=== PATIENT | female | born 1960 | race Caucasian/White ===

== ENCOUNTER → 2018-01-11 | Outpatient (CLI) | payer BC ==
--- NOTE | 2018-01-11 11:11 | Diagnostic Imaging Report ---
INDICATION: Postmenopausal female. Bone density screening. TECHNIQUE: DEXA scan performed of the lumbar spine and bilateral hips. COMPARISON: None FINDINGS: Lumbar Spine: The bone mineral density of the lumbar spine measured from vertebral bodies L1-L4 measures 0.992 g/cm2 with a T score of -1.6. The Z score is -0.4. Age matched bone mineral density is 95 %. Right hip: The total right hip bone mineral density measures 0.795 g per square centimeter, with a T score of -1.7 and a Z score of -0.8. The right femoral neck bone mineral density measures 0.693 g per square centimeter, with a T score of -2.5 and a Z score of -1.3. Left hip: The total left hip bone mineral density measures 0.780 g per square centimeter, with a T score -1.8 and a Z score of -0.9. The left femoral neck bone mineral density measures 0.685 g per square centimeter, with a T score of -2.5 and Z score of -1.3. The T-score is defined as the Bone Mineral Density (BMD) of the patient compared with the mean peak BMD of a young adult population by standard deviation (SD). Normal < 1 SD below mean peak value Osteopenia > 1 SD but < 2.5 SD below mean peak value Osteoporosis > 2.5 SD below mean peak value The WHO classification does not apply to healthy premenopausal women and men less than 50 years of age. If the patient is premenopausal or male less than 50 year of age T-scores should not be used. Terms such as "low bone density for chronological age" may be used if the Z-score is less than -2.0 IMPRESSION: 1. Osteoporosis. 2. Baseline study. Dictated by: Dictated on workstation # [id number]
--- NOTE | 2018-01-11 19:29 | Diagnostic Imaging Report ---
INDICATION: Routine screening. Comparison is made with prior study from 02/22/2016 and 12/30/2013. 2-D and 3-D bilateral screening mammography was performed with CAD. The current study was also evaluated with a Computer Aided Detection (CAD) system. FINDINGS: Both breasts are heterogeneously dense, limiting the sensitivity of mammography. There are benign calcifications bilaterally. No mass or malignant-appearing microcalcifications are seen. The axillae are unremarkable. IMPRESSION: No mammographic features suspicious for malignancy are identified. ACR BI-RADS Category 2: Benign findings. Result letter will be mailed to the patient. Note: At least 10% of breast cancer is not imaged by mammography. Dictated by: Dictated on workstation # [id number]
== END ==
LOC: RAD 10:00
PROVIDERS: ATTEND Obstetrics & Gynecology
DX: Z12.31 Encounter for screening mammogram for malignant neoplasm of breast (principal); M81.0 Age-related osteoporosis without current pathological fracture
CPT/HCPCS: 77067; 77080

== ENCOUNTER → 2020-12-03 | Outpatient (CLI) | payer BC ==
--- NOTE | 2020-12-03 14:26 | Diagnostic Imaging Report ---
Indication: Routine screening. Comparison is made with prior mammogram 05/30/2019 and 01/11/2018. 2-D and 3-D bilateral screening mammography was performed with CAD. Both breasts are heterogeneously dense, limiting the sensitivity of mammography. The parenchymal pattern is stable. No mass or malignant appearing microcalcifications are seen. There are benign calcifications present. Axillae are unremarkable. IMPRESSION: BI-RADS Category 2 No mammographic features suspicious for malignancy are identified. ACR BI-RADS Category 2: Benign findings. Result letter will be mailed to the patient. Note: At least 10% of breast cancer is not imaged by mammography. Dictated by: Dictated on workstation # [id number]
== END ==
LOC: RAD 10:15
PROVIDERS: ATTEND Nurse Practitioner Family
DX: Z12.31 Encounter for screening mammogram for malignant neoplasm of breast (principal)
CPT/HCPCS: 77063; 77067

== ENCOUNTER → 2021-12-16 | Outpatient (CLI) | payer BC, OTHER ==
--- NOTE | 2021-12-16 14:12 | Diagnostic Imaging Report ---
Indication: Routine screening. Comparison is made with prior mammogram from 12/03/2020 and 05/30/2019. 2-D and 3-D bilateral screening mammography was performed with CAD. CAD is utilized. The current study was also evaluated with a Computer Aided Detection (CAD) system. Both breasts are heterogeneously dense, limiting the sensitivity of mammography. The parenchymal pattern is stable. No mass or malignant-appearing microcalcifications are seen. There are benign calcifications. Axillae are unremarkable. IMPRESSION: BI-RADS Category 2 No mammographic features suspicious for malignancy are identified. ACR BI-RADS Category 2: Benign findings. Result letter will be mailed to the patient. Note: At least 10% of breast cancer is not imaged by mammography. Dictated by: Dictated on workstation # [id number]
== END ==
LOC: RAD 11:00
PROVIDERS: ATTEND Nurse Practitioner Family
DX: Z12.31 Encounter for screening mammogram for malignant neoplasm of breast (principal)
CPT/HCPCS: 77063; 77067

== ENCOUNTER → 2022-09-13 | Outpatient (CLI) | payer OTHER ==
--- NOTE | 2022-09-13 16:14 | Diagnostic Imaging Report ---
INDICATION: Possible screening COMPARISON: 01/11/2018 FINDINGS: AP Spine L1-L4: [BMD (g/cm2): 0.951] [T-Score: -2.1] [Z-Score: -0.7] [BMD Previous: 0.996] [BMD % Change: -4.5] LT Hip Neck: [BMD (g/cm2): 0.753] [T-Score: -2.1] [Z-Score: -0.7] LT Hip Total: [BMD (g/cm2):0.801] [T-Score:-1.6] [Z-Score: -0.6] [BMD Previous: 0.780] [BMD % Change: 2.7] RT Hip Neck: [BMD (g/cm2):0.714] [T-Score:-2.3] [Z-Score:-1.0] RT Hip Total: [BMD (g/cm2):0.833] [T-score:-1.4] [Z-Score:-0.3] [BMD Previous:0.795] [BMD % Change:4.8] *Indicates significant change from prior examination based on 95% confidence level. World Health Organization criteria for BMD interpretation classify patients as Normal (T-score at or above -1.0), Osteopenic (T-score between -1.0 and -2.5) or Osteoporotic (T-score at or below -2.5). LIMITATIONS AND MODIFICATION: None. FRACTURE RISK (FRAX SCORE): The ten year probability of (%): Major Osteoporotic Fracture: [11.6] Hip Fracture: [2.1] IMPRESSION: 1. Osteopenia (Low bone mass). 2. Bone mineral density has decreased by a statistically significant amount, as detailed above. 3. See below National Osteoporosis Foundation guidelines on when to potentially initiate pharmacologic therapy. Based on the National Osteoporosis Foundation Guidelines, pharmacologic treatment should be initiated in any of the following, unless clinical conditions suggest otherwise: * Any patient with prior fragility fracture of the hip or vertebrae. A spine fracture indicates 5X risk for subsequent spine fracture and 2X risk for subsequent hip fracture. * Osteoporosis (T-score <-2.5). * Postmenopausal women and men age 50 and older with low bone mass/osteopenia (T-score between -1.0 and -2.5) by DXA and 10-year major osteoporotic fracture greater than 20% or a 10-year probability of hip fracture greater than 3%. These fracture risks are supplied above in the FRAX score, if applicable. * Clinician judgement and/or patient preferences may indicate treatment for people with 10-year fracture probabilities above or below these levels. Dictated by: Dictated on workstation # [id number]
== END ==
LOC: RAD 14:22
PROVIDERS: ATTEND Nurse Practitioner Family
DX: M85.80 Other specified disorders of bone density and structure, unspecified site (principal)
CPT/HCPCS: 77080